=== PATIENT | male | born 1965 | race Two or more races ===

== ENCOUNTER 2016-10-18 19:53 | Emergency (ER) | payer BC ==
[~2016-10-18] VITALS: Ht 175.3 cm; Wt 106.1 kg
[~2016-10-18 19:53] MED LIST: BUPR1FIL5 SL; CLON0.5T PO; HEART MED
[2016-10-18] MEDS ORDERED: ASPIRIN 325 MG TABLET ONE (20:05)
--- NOTE | 2016-10-18 20:07 | NUR ---
DR. KAUR IS AT THE BEDSIDE EVALUATING THE PT.
[2016-10-18 20:10] LABS: BASOPHILS # (AUTO) 0.1 /CMM (0.0-0.2); BASOPHILS % (AUTO) 0.7 % (0.0-2.0); EOSINOPHILS # (AUTO) 0.2 /CMM (0.0-0.7); EOSINOPHILS % (AUTO) 1.3 % (0.0-6.0); HEMATOCRIT 42 % (39-51); HEMOGLOBIN 14.5 g/dL (13.5-17.5); LYMPHOCYTES # (AUTO) 2.9 /CMM (0.8-4.8); LYMPHOCYTES % (AUTO) 21.7 % (20.0-44.0); MEAN CORPUSCULAR HEMOGLOBIN 29 PG (26.0-33.0); MEAN CORPUSCULAR HGB CONC 34 g/dl (31.0-36.0); MEAN CORPUSCULAR VOLUME 84 fL (80-96); MONOCYTES # (AUTO) 0.5 /CMM (0.1-1.30); NEUTROPHILS # (AUTO) 9.5 /CMM (1.8-8.9); NEUTROPHILS % (AUTO) 72.3 % (43.0-81.0); PLATELET COUNT (AUTO) 237 /CMM (150-450); RED BLOOD CELL COUNT(AUTO) 5.05 MIL/uL (4.5-6.0); WHITE BLOOD COUNT (AUTO) 13.2 K/uL (4.3-11.0)
[2016-10-18 20:20] LABS: CALCIUM, SERUM 8.6 mg/dL (8.5-10.1); CARBON DIOXIDE 29 mmol/L (21-32); CHLORIDE 104 mmol/L (98-107); CREATININE 1.3 mg/dL (0.6-1.3); GFR 58 mL/min (>60); GLUCOSE 139 mg/dL (74-106); POTASSIUM 3.5 mmol/L (3.5-5.1); SODIUM SERUM 139 mmol/L (136-145); UREA NITROGEN, BLOOD 13 mg/dL (7-18)
[2016-10-18 20:23] LABS: INR 0.96 (0.87-1.13)
[2016-10-18 20:28] LABS: TROPONIN I < 0.017 ng/mL (0.00-0.056)
[2016-10-18] MEDS ORDERED: ASPIRIN 325 MG TABLET PO ONE (20:30)
--- NOTE | 2016-10-18 21:50 | NUR ---
IV removed. Catheter intact and site benign. Pressure and 4x4 applied to site. No bleeding noted.
--- NOTE | 2016-10-18 22:00 | NUR ---
Patient discharged to home in stable condition. Written and verbal after care instructions given. Patient verbalizes understanding of instruction. PT AMBULATED OUT WITH A STEADY GAIT. VSS.
[2016-10-18 22:11] VITALS: BP 142/67
== END 2016-10-18 22:00 | disposition home or self-care (01) ==
LOC: ER 19:55
DX: R07.89 Other chest pain (principal)
CPT/HCPCS: 36415; 71010; 80048; 84484; 85025; 85730; 93005; 99285; A4606; Z7610

== ENCOUNTER 2017-05-11 03:39 | Emergency (ER) | payer SELFPAY ==
[~2017-05-11] VITALS: Ht 175.3 cm; Wt 99.8 kg
--- NOTE | 2017-05-11 03:43 | NUR ---
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 Aaox3, nad noted, breathing even and unlabored. Nondiaphoretic. Placed on cardiac and vs monitor.
--- NOTE | 2017-05-11 03:50 | NUR ---
Dr Villarreal at bedside to eval.
[2017-05-11] MEDS ORDERED: ONDANSETRON 4 MG TAB.RAPDIS ONE (03:57)
[2017-05-11] MEDS ORDERED: LOPERAMIDE HCL (2 MG CAP) 2 MG CAPSULE PO ONE ×2 (03:57→04:00)
[2017-05-11] MEDS ORDERED: ONDANSETRON 4 MG TAB.RAPDIS SL ONE (04:00)
[2017-05-11] MEDS ORDERED: CLONIDINE HCL 0.2MG/24H PTWK 1 EA PATCH TD ONE ×2 (04:00→04:07)
--- NOTE | 2017-05-11 04:17 | NUR ---
medicated patient as ordered by Dr Villarreal.
--- NOTE | 2017-05-11 04:39 | NUR ---
Patient discharged to home in stable condition. Written and verbal after care instructions given. Patient verbalizes understanding of instruction. Patient is ambulatory with steady gait, no further complaints.
[2017-05-11 04:40] VITALS: BP 130/82
== END 2017-05-11 04:40 | disposition home or self-care (01) ==
LOC: ER 03:42
DX: F11.23 Opioid dependence with withdrawal (principal); J34.89 Other specified disorders of nose and nasal sinuses; Z85.46 Personal history of malignant neoplasm of prostate
CPT/HCPCS: 71010; 93005; 99284; A4606; Q0162; Z7610

== ENCOUNTER 2017-06-05 09:09 | Emergency (ER) | payer MEDICAID ==
[~2017-06-05] VITALS: Ht 175.3 cm; Wt 104.3 kg
--- NOTE | 2017-06-05 09:10 | NUR ---
PT PRESENTED TO THE ER WITH A C/O CHEST PAIN MIDSTERNAL TO EPIGASTRIC. PT TOOK HIS LISINOPRIL AND SOME ZANAX LEGAL ARCHIVIST WITH NO RELIEF. PT APPEARS ANXIOUS. PT IS ON THE MONITOR AND CONTINUOUS PULSE OX. PT IS ST @133 ON THE MONITOR. EKG IN PROGRESS. IV INSERTION IN PROGRESS.
[2017-06-05] MEDS ORDERED: LISI-603 PO (09:22)
[2017-06-05] MEDS ORDERED: IV NS 0.9% 1,000 ML BAG IV ONE (09:30)
[2017-06-05] MEDS ORDERED: LORAZEPAM INJ 2 MG/ML VIAL IVP ONE (09:30)
[2017-06-05 09:32] LABS: BASOPHILS % (AUTO) 0.4 % (0.0-2.0); EOSINOPHILS # (AUTO) 0.2 /CMM (0.0-0.7); EOSINOPHILS % (AUTO) 1.8 % (0.0-6.0); HEMATOCRIT 46 % (39-51); HEMOGLOBIN 15.5 g/dL (13.5-17.5); LYMPHOCYTES # (AUTO) 2.8 /CMM (0.8-4.8); LYMPHOCYTES % (AUTO) 26.1 % (20.0-44.0); MEAN CORPUSCULAR HEMOGLOBIN 28 PG (26.0-33.0); MEAN CORPUSCULAR HGB CONC 34 g/dl (31.0-36.0); MEAN CORPUSCULAR VOLUME 83 fL (80-96); MONOCYTES # (AUTO) 0.6 /CMM (0.1-1.30); MONOCYTES % (AUTO) 5.8 % (2.0-12.0); NEUTROPHILS # (AUTO) 7.1 /CMM (1.8-8.9); NEUTROPHILS % (AUTO) 65.9 % (43.0-81.0); PLATELET COUNT (AUTO) 277 /CMM (150-450); RDW COEFFICIENT OF VARIATION 14.2 (11.5-15.0); RED BLOOD CELL COUNT(AUTO) 5.55 MIL/uL (4.5-6.0); WHITE BLOOD COUNT (AUTO) 10.7 K/uL (4.3-11.0)
[2017-06-05] MEDS ORDERED: LORAZEPAM INJ 2 MG/ML VIAL ONE (09:36)
[2017-06-05 09:50] LABS: ALANINE AMINOTRANSFERASE 39 U/L (12-78); ALKALINE PHOSPHATASE 146 U/L (46-116); ASPARTATE AMINOTRANSFERASE 35 U/L (15-37); BILIRUBIN,TOTAL 0.4 mg/dL (0.2-1.0); CALCIUM, SERUM 9.5 mg/dL (8.5-10.1); CARBON DIOXIDE 27 mmol/L (21-32); CHLORIDE 103 mmol/L (98-107); CREATININE 1.2 mg/dL (0.6-1.3); GLUCOSE 133 mg/dL (74-106); POTASSIUM 3.4 mmol/L (3.5-5.1); SODIUM SERUM 137 mmol/L (136-145); UREA NITROGEN, BLOOD 13 mg/dL (7-18)
[2017-06-05 09:52] LABS: INR 0.9 (0.87-1.13); PROTHROMBIN TIME 9.4 SECS (9.5-12.7); TROPONIN I < 0.017 ng/mL (0.00-0.056)
--- NOTE | 2017-06-05 10:10 | NUR ---
PT AMBULATED TO THE BATHROOM WITH A STEADY GAIT. VSS.
--- NOTE | 2017-06-05 10:12 | NUR ---
PT AMBULATED BACK TO BED #3.
--- NOTE | 2017-06-05 10:22 | NUR ---
IV removed. Catheter intact and site benign. Pressure and 4x4 applied to site. No bleeding noted.Patient discharged to home in stable condition. Written and verbal after care instructions given. Patient verbalizes understanding of instruction AND RX. PT AMBULATED OUT WITH A STEADY GAIT. FAMILY AT THE BEDSIDE WILL TAKE PT HOME.
[2017-06-05 10:25] VITALS: BP 133/80
== END 2017-06-05 10:25 | disposition home or self-care (01) ==
LOC: ER 09:11
DX: R07.9 Chest pain, unspecified (principal); F11.10 Opioid abuse, uncomplicated; Z85.46 Personal history of malignant neoplasm of prostate
CPT/HCPCS: 36415; 71010-TC; 80048-TC; 80076-TC; 84484-TC; 85025-TC; 85730-TC; A4606; J2060; J7030; Z7610

== ENCOUNTER 2017-11-01 15:11 | Emergency (ER) | payer MEDICAID ==
[~2017-11-01] VITALS: Ht 177.8 cm; Wt 104.3 kg
[~2017-11-01 15:11] MED LIST changes: -HEART MED; +LISI-603 PO
--- NOTE | 2017-11-01 15:14 | NUR ---
PATIENT TO ED DT LEFT SIDE CHEST PAIN "CRAMPING LIKE" SINCE THIS AM- PATIENT IS AWAKE AND ALERT. APPEARS IN NO DISTRESS/ VSS
[2017-11-01] MEDS ORDERED: IV NS 0.9% 1,000 ML BAG IV ONE (15:30)
[2017-11-01 15:36] LABS: BASOPHILS # (AUTO) 0.2 /CMM (0.0-0.2); BASOPHILS % (AUTO) 1.3 % (0.0-2.0); EOSINOPHILS % (AUTO) 0.9 % (0.0-6.0); HEMATOCRIT 44 % (39-51); HEMOGLOBIN 15.1 g/dL (13.5-17.5); LYMPHOCYTES # (AUTO) 2.6 /CMM (0.8-4.8); LYMPHOCYTES % (AUTO) 20.4 % (20.0-44.0); MEAN CORPUSCULAR HGB CONC 34 g/dl (31.0-36.0); MEAN CORPUSCULAR VOLUME 83 fL (80-96); MONOCYTES # (AUTO) 0.7 /CMM (0.1-1.30); MONOCYTES % (AUTO) 5.2 % (2.0-12.0); NEUTROPHILS # (AUTO) 9.3 /CMM (1.8-8.9); NEUTROPHILS % (AUTO) 72.2 % (43.0-81.0); PLATELET COUNT (AUTO) 268 /CMM (150-450); RDW COEFFICIENT OF VARIATION 13.3 (11.5-15.0); WHITE BLOOD COUNT (AUTO) 12.9 K/uL (4.3-11.0)
[2017-11-01 15:49] LABS: CALCIUM, SERUM 9.7 mg/dL (8.5-10.1); CARBON DIOXIDE 25 mmol/L (21-32); CHLORIDE 102 mmol/L (98-107); CREATININE 1.1 mg/dL (0.6-1.3); GLUCOSE 107 mg/dL (74-106); POTASSIUM 3.9 mmol/L (3.5-5.1); SODIUM SERUM 139 mmol/L (136-145); UREA NITROGEN, BLOOD 14 mg/dL (7-18)
[2017-11-01 15:55] LABS: TROPONIN I < 0.017 ng/mL (0.00-0.056)
[2017-11-01 15:59] LABS: INR 0.94 (0.87-1.13)
[2017-11-01 16:02] LABS: ALANINE AMINOTRANSFERASE 44 U/L (12-78); ALBUMIN 4.2 g/dL (3.4-5.0); ALKALINE PHOSPHATASE 148 U/L (46-116); ASPARTATE AMINOTRANSFERASE 21 U/L (15-37); B-TYPE NATRIURETIC PEPTIDE 137 PG/ML (0-125); BILIRUBIN,DIRECT 0.1 mg/dL (0.0-0.2); BILIRUBIN,TOTAL 0.5 mg/dL (0.2-1.0); TOTAL PROTEIN, SERUM 8.2 g/dL (6.4-8.2)
[2017-11-01 16:16] LABS: ACETAMINOPHEN 0 ug/ml (10-30); ALCOHOL, BLOOD < 3 mg/dL (0-0); SALICYLATE 0.8 mg/dL (2.8-20.0)
[2017-11-01 16:40] LABS: APPEARANCE,URINE CLEAR (CLEAR); BILIRUBIN,URINE NEGATIVE (NEGATIVE); BLOOD, URINE TRACE-INTA Ery/uL (NEGATIVE); COLOR,URINE YELLOW (YELLOW); KETONES,URINE NEGATIVE (NEGATIVE); LEUKOCYTE ESTERASE ,URINE NEGATIVE (NEGATIVE); NITRITE, URINE NEGATIVE (NEGATIVE); PROTEIN,URINE NEGATIVE (NEGATIVE); UGLUCOSE NEGATIVE (NEGATIVE); UROBILINOGEN,URINE 0.2 EU/dL (0.2)
--- NOTE | 2017-11-01 16:55 | NUR ---
Patient discharged to home in stable condition. Written and verbal after care instructions given. Patient verbalizes understanding of instruction.
--- NOTE | 2017-11-01 16:55 | NUR ---
IV removed. Catheter intact and site benign. Pressure and 4x4 applied to site. No bleeding noted.
[2017-11-01 16:56] VITALS: BP 117/75
[2017-11-01 16:58] LABS: BACTERIA,URINE None seen /HPF (None Seen); SQUAMOUS EPITHELIAL CELL,UR 0-2 /HPF (None Seen); WBC,URINE 0-2 /HPF (0-3)
== END 2017-11-01 17:00 | disposition home or self-care (01) ==
LOC: ER 15:14
DX: R07.89 Other chest pain (principal); F41.9 Anxiety disorder, unspecified; E86.0 Dehydration; Z85.46 Personal history of malignant neoplasm of prostate; Z98.890 Other specified postprocedural states
CPT/HCPCS: 36415; 71045-TC; 80048-TC; 80076-TC; 80305; 81000-TC; 83880; 84484-TC; 85025-TC; 85730-TC; A4606; G0480; J7030; Z7610

== ENCOUNTER 2017-11-30 11:50 | Emergency (ER) | payer MEDICAID, OTHER ==
[~2017-11-30] VITALS: Ht 175.3 cm; Wt 104.3 kg
--- NOTE | 2017-11-30 11:55 | NUR ---
AAOX3, CAME TO ER C/O GENERALIZED BODYACHES, HX OF PROSTATE CA. RR IS EVEN AND UNLABORED WITH NAD NOTED. SKIN IS WARM AND DRY. AWAITING MD FOR EVAL.
[2017-11-30 12:10] VITALS: BP 131/78
== END 2017-11-30 12:11 | disposition home or self-care (01) ==
LOC: ER 11:51
DX: G89.29 Other chronic pain (principal); N17.9 Acute kidney failure, unspecified; I10 Essential (primary) hypertension; Z85.46 Personal history of malignant neoplasm of prostate; Z98.890 Other specified postprocedural states
CPT/HCPCS: A4606; Z7502; Z7610

== ENCOUNTER 2018-01-31 14:33 | Inpatient (IN) | payer OTHER ==
[~2018-01-31] VITALS: Ht 175.3 cm; Wt 104.3 kg
--- NOTE | 2018-01-31 14:38 | NUR ---
AAOX3, CAME TO ER C/O LEFT SIDED CHEST PAIN NON RADIATING X 2 WEEKS, WORSE WHEN LAYING ON LEFT. RR IS EVEN AND UNLABORED WITH NAD NOTED. SKIN IS WARM AND DRY. PLACED ON THE MONITOR. AWAITING MD FOR EVAL. EKG IN PROGRESS AT BS.
[2018-01-31 15:25] LABS: BASOPHILS # (AUTO) 0.2 /CMM (0.0-0.2); BASOPHILS % (AUTO) 1.7 % (0.0-2.0); EOSINOPHILS % (AUTO) 0.5 % (0.0-6.0); HEMATOCRIT 45 % (39-51); HEMOGLOBIN 15.8 g/dL (13.5-17.5); LYMPHOCYTES # (AUTO) 2.3 /CMM (0.8-4.8); LYMPHOCYTES % (AUTO) 18.1 % (20.0-44.0); MEAN CORPUSCULAR HEMOGLOBIN 30 PG (26.0-33.0); MEAN CORPUSCULAR HGB CONC 36 g/dl (31.0-36.0); MEAN CORPUSCULAR VOLUME 83 fL (80-96); MONOCYTES # (AUTO) 0.6 /CMM (0.1-1.30); MONOCYTES % (AUTO) 4.9 % (2.0-12.0); NEUTROPHILS # (AUTO) 9.7 /CMM (1.8-8.9); NEUTROPHILS % (AUTO) 74.8 % (43.0-81.0); PLATELET COUNT (AUTO) 225 /CMM (150-450); RDW COEFFICIENT OF VARIATION 11.9 (11.5-15.0); RED BLOOD CELL COUNT(AUTO) 5.35 MIL/uL (4.5-6.0); WHITE BLOOD COUNT (AUTO) 12.9 K/uL (4.3-11.0)
[2018-01-31] MEDS ORDERED: LORAZEPAM INJ 2 MG/ML VIAL IV ONE (15:30)
--- NOTE | 2018-01-31 15:33 | NUR ---
SECOND ORDER OF EKG BUT HOLD OFF ON IT PER MD BERRY UNTIL CTA RESULTS ARE IN.
[2018-01-31 15:40] LABS: CALCIUM, SERUM 9.1 mg/dL (8.5-10.1); CARBON DIOXIDE 26 mmol/L (21-32); CHLORIDE 102 mmol/L (98-107); CREATININE 1.2 mg/dL (0.6-1.3); GLUCOSE 94 mg/dL (74-106); POTASSIUM 3.8 mmol/L (3.5-5.1); SODIUM SERUM 137 mmol/L (136-145); UREA NITROGEN, BLOOD 15 mg/dL (7-18)
[2018-01-31 15:47] LABS: INR 0.89 (0.85-1.15)
[2018-01-31 15:50] LABS: TROPONIN I < 0.017 ng/mL (0.00-0.056)
[2018-01-31] MEDS ORDERED: ASPIRIN 81 MG TAB.CHEW PO ONE (16:00)
[2018-01-31] MEDS ORDERED: IOHEXOL-350 100 ML VIAL IV ONE (16:04)
[2018-01-31] MEDS ORDERED: ASPIRIN 81 MG TAB.CHEW ONE (16:05)
[2018-01-31] MEDS ORDERED: LORAZEPAM INJ 2 MG/ML VIAL ONE (16:05)
--- NOTE | 2018-01-31 16:10 | NUR ---
DUPLICATE ORDER FOR EKG
[2018-01-31] MEDS ORDERED: HYDR25TA4 PO (16:20)
[2018-01-31] MEDS ORDERED: VALA500T36 PO (16:20)
[2018-01-31] MEDS ORDERED: OXYC30TA2 PO (16:20)
[2018-01-31] MEDS ORDERED: LORA-259 PO (16:20)
--- NOTE | 2018-01-31 16:24 | NUR ---
CALLED [facility] FOR PANEL CALL AND DR BALLESTEROS WAS PAGED. CALLED NURSING DYE TANK TENDER AND REQUESTED A TELE BED FOR THIS PT.
[2018-01-31] MEDS ORDERED: CYCLOBENZAPRINE 10 MG TABLET PO ONE (16:30)
[2018-01-31] MEDS ORDERED: KETOROLAC TROMETHAMINE INJ 60 MG/2 ML VIAL IM ONE ×2 (16:30→16:44)
[2018-01-31] MEDS ORDERED: CYCLOBENZAPRINE 10 MG TABLET ONE (16:45)
[2018-01-31 16:50] LABS: CREATINE KINASE MB 0.9 ng/mL (0-3.6)
--- NOTE | 2018-01-31 17:04 | NUR ---
PT IS ASSIGNED TO [facility] RM#: [id number], DX: CHEST PAIN, AND ACCEPTING IS DR PARADA
[2018-01-31 17:15] LABS: CHOLESTEROL 195 mg/dL (<200); HDL CHOLESTEROL 46 mg/dL (40-60); LDL 132 mg/dL (0-99); TRIGLYCERIDES 115 mg/dL (30-150)
[2018-01-31] MEDS ORDERED: HYDROCODONE/APAP 5/325MG 1 EACH TABLET PO PRN (17:30)
[2018-01-31] MEDS ORDERED: MAGNESIUM HYDROXIDE 30 ML UDC PO PRN (17:30)
[2018-01-31] MEDS ORDERED: ACETAMINOPHEN 325 MG TABLET PO PRN (17:30)
[2018-01-31] MEDS ORDERED: MAG HYDROX/AL HYDROX/SIMETH 30 ML UDC PO PRN (17:30)
[2018-01-31] MEDS ORDERED: ZOLPIDEM TARTRATE 5 MG TABLET PO PRN (17:30)
[2018-01-31] MEDS ORDERED: ONDANSETRON HCL/PF 4 MG/2 ML VIAL IVP PRN (17:30)
[2018-01-31] MEDS ORDERED: Z GUARD REMEDY 2 OZ OINT TP PRN (17:30)
--- NOTE | 2018-01-31 17:49 | NUR ---
REPORT GIVEN TO KEVIN BAPTISTE
--- NOTE | 2018-01-31 17:51 | NUR ---
RECEIVED REPORT FROM ER. AWAITING FOR THE PATIENT TO ARRIVE.
--- NOTE | 2018-01-31 18:14 | NUR ---
pt transferred to floor via acls protocol
[2018-01-31 18:20] VITALS: BP 115/73
--- NOTE | 2018-01-31 18:20 | NUR ---
FLOORING SALESPERSON ADMITTING NOTE PATIENT ARRIVED TO THE UNIT VIA GURNEY. SELF-AMBULATED TO THE BED. A/O X4, COOPERATIVE, AWAKE AND RESPONSIVE. CURRENTLY IS IN BED. BED IS LOCKED IN LOWEST POSITION, SIDE RAILS UP X2. PATIENT IS AMBULATORY, PRESENTS WITH STEADY GAIT, AND IS ORIENTED TO OWN ABILITIES. UPPER BODY ASSESSED. SKIN IS CLEAN AND INTACT. PATIENT REFUSED TO TAKE OF THE PANTS AND THE SOCKS, STATED HIS SKIN IS INTACT WITH NO BRUISES, SKIN CONDITIONS PRESENT. RN UNABLE TO ASSES THE LOWER BODY. EXTERNAL BRICK DROPPER APPLIED. TELE READING SR WITH PVC's HR 64 BPM. LAC 18G IV CATHETER IS INTACT AND PATENT. SPO2 97% ON RA. CHEST RISING EQUALLY/BILATERALLY. DENIES CHEST PAIN AT THIS TIME. REPORTS LEFT SIDED DISCOMFORT. DR PARADA IS AWARE OF PATIENT'S ARRIVAL TO THE UNIT. SEEN BY DR PARADA IN THE ER. ALL NEEDS ARE MET. WILL ENDORSE TO THE LINING MARKER NURSE FOR THE ROBERTO.
[2018-01-31 20:00] VITALS: BP 114/68
[2018-02-01] VITALS: BP 105/66
[2018-02-01 03:49] LABS: BASOPHILS # (AUTO) 0.1 /CMM (0.0-0.2); BASOPHILS % (AUTO) 0.8 % (0.0-2.0); EOSINOPHILS % (AUTO) 1.2 % (0.0-6.0); HEMATOCRIT 43 % (39-51); HEMOGLOBIN 14.4 g/dL (13.5-17.5); LYMPHOCYTES # (AUTO) 2.7 /CMM (0.8-4.8); LYMPHOCYTES % (AUTO) 25.1 % (20.0-44.0); MEAN CORPUSCULAR HEMOGLOBIN 29 PG (26.0-33.0); MEAN CORPUSCULAR HGB CONC 34 g/dl (31.0-36.0); MEAN CORPUSCULAR VOLUME 86 fL (80-96); MONOCYTES # (AUTO) 0.6 /CMM (0.1-1.30); NEUTROPHILS # (AUTO) 7.1 /CMM (1.8-8.9); NEUTROPHILS % (AUTO) 66.9 % (43.0-81.0); PLATELET COUNT (AUTO) 206 /CMM (150-450); RDW COEFFICIENT OF VARIATION 12.8 (11.5-15.0); RED BLOOD CELL COUNT(AUTO) 4.99 MIL/uL (4.5-6.0); WHITE BLOOD COUNT (AUTO) 10.6 K/uL (4.3-11.0)
[2018-02-01 04:00] VITALS: BP 106/46
[2018-02-01 04:03] LABS: CALCIUM, SERUM 8.9 mg/dL (8.5-10.1); CREATININE 1.1 mg/dL (0.6-1.3); MAGNESIUM 2.2 mg/dL (1.8-2.4); PHOSPHORUS 4.1 mg/dL (2.5-4.9); POTASSIUM 3.7 mmol/L (3.5-5.1)
--- NOTE | 2018-02-01 06:23 | NUR ---
THERAPIST RRT NOTES AWAKE & RESPONSIVE. NOT IN ANY DISTRESS. NO SOB NOTED. DENIES ANY PAIN OR DISCOMFORT AT THIS TIME. ON TELE SB @ 58 WITH PVCS WITH IV-HL PATENT & INTACT. MONITORED ACCORDINGLY. CALL LIGHT WITHIN REACH. BED IN LOWEST POSITION. SR UP X 2 FOR SAFETY. WILL ENDORSE TO NEXT SHIFT.
[2018-02-01 08:00] VITALS: BP 132/80
--- NOTE | 2018-02-01 08:00 | NUR ---
GEOGRAPHIC AREA INTELLIGENCE OFFICER NOTES PATIENT SEEN AND EVALUATED BY DR. MCCALLUM ORDERS FOR PATIENT TO BE NPO AND STRESS TEST FOR TODAY. PATIENT WAS KEPT NPO FOR BREAKFAST STATES HE ONLY HAD WATER. ORDERS NOTED AND CARRIED OUT.
[2018-02-01] MEDS: VALACYCLOVIR HCL 500 MG TABLET PO SCH ×2 (09:00→17:00)
[2018-02-01] MEDS: LISINOPRIL (20MG) 20 MG TABLET PO SCH (09:00)
[2018-02-01] MEDS: HYDROCHLOROTHIAZIDE 25 MG TABLET PO SCH (09:00)
[2018-02-01] MEDS: LORAZEPAM 1 MG TABLET PO SCH (09:27)
--- NOTE | 2018-02-01 09:31 | NUR ---
MS RN NOTES PATIENT HESITANT ABOUT STRESS TEST. PATIENT SPOKE TO DAVE MIXER PIGMENT VERBALIZED CONSENT. AGREED TO TAKE ATIVAN BEFORE PROCEDURE. DAVE MIXER PIGMENT AGREED. NOTED AND CARRIED OUT.
[2018-02-01] MEDS ORDERED: REGADENOSON 0.4 MG/5 ML DISP.SYRIN IVP ONE (11:27)
[2018-02-01] MEDS ORDERED: oxyCODONE IR immediate release 5 MG PO PRN (15:30)
[2018-02-01 16:00] VITALS: BP 96/60
[2018-02-01] MEDS ORDERED: oxyCODONE IR immediate release 5 MG PO SCH (17:00)
[2018-02-01] MEDS ORDERED: ASPIRIN EC 81 MG TABLET.DR PO ONE (17:30)
--- NOTE | 2018-02-01 18:00 | NUR ---
MS RN NOTES CALL RECEIVED FROM DR. PARADA STATING PATIENT STRESS TEST WAS NEGATIVE AND TO INFORM GI CONSULT TO EVALUATE PATIENT. DR. COUGHLIN INFORMED WILL EVALUATE PATIENT IN AM TO KEEP PATIENT NPO AFTER MIDNIGHT. ORDERS NOTED AND CARRIED OUT.
--- NOTE | 2018-02-01 19:05 | NUR ---
MS RN NOTES PATIENT IN BED RESTING NO SOB OR ACUTE DISTRESS NOTED. ALL DUE MEDICATIONS ADMINISTERED. ALL NEEDS MET WILL ENDORSE TO PM SHIFT ROBERTO.
--- NOTE | 2018-02-01 19:45 | NUR ---
ms/rn opening notes PATIENT IN BED, ALERT, ORIENTED, ABLE TO VERBALIZE NEEDS, CALM AND COOPERTAIVE TO CARE, SKINWARM TO TOUCH, NO PAIN REPORTED AND OBSERVED AT THIS TIME, DISCUSSED PLAN OF CARE. , WITH BRP, CARDIAC DIET, RECEIVED ENDORSEMENT FROM AM RN FOR ROBERTO.BRENDA PEREZ,
[2018-02-01 20:00] VITALS: BP 120/70
--- NOTE | 2018-02-02 06:28 | NUR ---
321-2 MS/RN NOTES PATIENT ABLE TO SLEEP DURING THE NIGHT, RAYMOND AND COOPERTAIVE TO CARE, MOTIVATED FOR SELF CARE, CALL LIGHTS WITHIN REACH, BED IN LOCK POSITION, WILL ENDORSE TO AM RN FOR ROBERTO.
[2018-02-02 07:26] LABS: CALCIUM, SERUM 8.9 mg/dL (8.5-10.1); CREATININE 1.3 mg/dL (0.6-1.3); POTASSIUM 3.9 mmol/L (3.5-5.1)
[2018-02-02 07:30] LABS: BASOPHILS % (AUTO) 0.3 % (0.0-2.0); EOSINOPHILS % (AUTO) 2.2 % (0.0-6.0); HEMATOCRIT 45 % (39-51); HEMOGLOBIN 14.8 g/dL (13.5-17.5); LYMPHOCYTES # (AUTO) 2.6 /CMM (0.8-4.8); LYMPHOCYTES % (AUTO) 25.8 % (20.0-44.0); MEAN CORPUSCULAR HEMOGLOBIN 29 PG (26.0-33.0); MEAN CORPUSCULAR HGB CONC 33 g/dl (31.0-36.0); MEAN CORPUSCULAR VOLUME 87 fL (80-96); MONOCYTES # (AUTO) 0.6 /CMM (0.1-1.30); MONOCYTES % (AUTO) 6.5 % (2.0-12.0); NEUTROPHILS # (AUTO) 6.5 /CMM (1.8-8.9); NEUTROPHILS % (AUTO) 65.2 % (43.0-81.0); PLATELET COUNT (AUTO) 224 /CMM (150-450); RDW COEFFICIENT OF VARIATION 12.6 (11.5-15.0); RED BLOOD CELL COUNT(AUTO) 5.13 MIL/uL (4.5-6.0); WHITE BLOOD COUNT (AUTO) 9.9 K/uL (4.3-11.0)
--- NOTE | 2018-02-02 07:30 | NUR ---
MS/RN OPENING NOTE PATIENT ALERT AND ORIENTED X4. DENIES SOB. RESPIRATION REGULAR AND UNLABORED. DENIES PAIN. PATIENT IN NO APPARENT DISTRESS. LAC G 20 PATENT AND SALINE LOCKED. PATIENT IS NPO SINCE MIDNIGHT FOR GI CONSULT. PATIENT CONTINENT AND AMBULATORY. VERBAL CUES ARE GIVEN TO KEEP SAFETY AWARENESS HIGH. GOOD AND GENTLE SKIN CARE RENDERED. KEPT CLEAN, DRY AND COMFORTABLE. ALL NEEDS ATTENDED AND ANTICIPATED. WILL CONTINUE TO MONITOR.
[2018-02-02 08:00] VITALS: BP 118/80
[2018-02-02] MEDS: LISINOPRIL (20MG) 20 MG TABLET PO SCH (09:00)
[2018-02-02] MEDS: VALACYCLOVIR HCL 500 MG TABLET PO SCH ×2 (09:00→18:13)
[2018-02-02] MEDS: LORAZEPAM 1 MG TABLET PO SCH (09:00)
[2018-02-02] MEDS: HYDROCHLOROTHIAZIDE 25 MG TABLET PO SCH (09:00)
[2018-02-02] MEDS: PANTOPRAZOLE 40 MG TABLET.DR PO SCH (10:00)
[2018-02-02 16:00] VITALS: BP 115/74
--- NOTE | 2018-02-02 17:00 | NUR ---
MS/RN NOTE PATIENT IS BACK FRO EGD. PATIENT ALERT AND ORIENTED X4. DENIES SOB. DENIES PAIN. RESPIRATION REGULAR AND UNLABORED. PATIENT IN NO APPARENT DISTRESS.
--- NOTE | 2018-02-02 17:20 | NUR ---
MS/RN NOTE PATIENT TOLERATED CLEAR LIQUID DIET WELL.
--- NOTE | 2018-02-02 19:30 | NUR ---
MS RN OPENING NOTES: RECEIVED PT IN BED AND IS AWAKE AND LAYING DOWN IN BED. PT IS A/OX4. PT IS ANTICIPATING EGD RESULTS BUT THEY ARE STILL PENDING. PT HAS L AC #20G AND IS PATENT AND INTACT. CURRENTLY S/L. CALL LIGHT WITHIN PT'S REACH. BED KEPT IN LOW, LOCKED POSITION, AND SIDE RAILS X 2UP. WILL CONTINUE TO MONITOR PT.
--- NOTE | 2018-02-02 19:35 | NUR ---
MS/RN CLOSING NOTE PATIENT ALERT AND ORIENTED X4. DENIES SOB. DENIES PAIN. BREATHING EVEN AND UNLABORED. PATIENT IN NO APPARENT DISTRESS. YESSICA G 20 PATENT AND SALINE LOCKED. BED LOW AND LOCKED. SIDE RAILS UP X3. CALL LIGHT WITHIN REACH. WILL ENDORSE TO BUSINESS DATABASE ANALYST.
[2018-02-02 21:52] VITALS: BP 108/68
--- NOTE | 2018-02-03 07:30 | NUR ---
received pt. this am,vs stable,no complaints offered.
--- NOTE | 2018-02-03 07:41 | NUR ---
MS RN CLOSING NOTES: PT IS AWAKE AND SITTING UP READING A BOOK. PT IS A/OX4. PT HAS IV ON LAC #20G AND IS PATENT AND INTACT. CURRENTLY S/L. CALL LIGHT WITHIN PT'S REACH. BED KEPT IN LOW, LOCKED POSITION, AND SIDE RAILS X 2UP. ENDORSED TO AM NURSE FOR ROBERTO.
[2018-02-03 08:00] VITALS: BP 121/74
[2018-02-03] MEDS: PANTOPRAZOLE 40 MG TABLET.DR PO SCH (09:42)
[2018-02-03] MEDS: HYDROCHLOROTHIAZIDE 25 MG TABLET PO SCH (09:42)
[2018-02-03] MEDS: VALACYCLOVIR HCL 500 MG TABLET PO SCH (09:42)
[2018-02-03] MEDS: LORAZEPAM 1 MG TABLET PO SCH (09:42)
[2018-02-03 10:25] VITALS: BP 115/73
[2018-02-03] MEDS: LISINOPRIL (20MG) 20 MG TABLET PO SCH (10:25)
--- NOTE | 2018-02-03 11:30 | NUR ---
up and about in room,no distress noted.
[2018-02-03] MEDS ORDERED: PANT40TA2 PO (11:39)
--- NOTE | 2018-02-03 14:10 | NUR ---
benita sifuentes instrumentation technician in ,discharge order given,made ready for dc.hep lock out.review of orders and protonix order. belonging sheet signed.aware to follow up with private md and have further egd.amb. to lobby accompanied by family and admittance attendant.
== END 2018-02-03 15:00 | disposition home or self-care (01) | DRG 241 ==
LOC: ER 14:37 → TELE 17:28 → MED 02-01 11:29
PROVIDERS: ADMIT Family Medicine; ATTEND Family Medicine
PROC: 0DB58ZX Excision of Esophagus, Via Natural or Artificial Opening Endoscopic, Diagnostic (ICD-10-PCS; principal; 2018-02-02 16:41)
PROC: 0DB68ZX Excision of Stomach, Via Natural or Artificial Opening Endoscopic, Diagnostic (ICD-10-PCS; principal; 2018-02-02 16:41)
DX: K29.70 Gastritis, unspecified, without bleeding (principal); I31.9 Disease of pericardium, unspecified; I10 Essential (primary) hypertension; R07.81 Pleurodynia; D72.829 Elevated white blood cell count, unspecified; F41.9 Anxiety disorder, unspecified; K29.80 Duodenitis without bleeding; G89.29 Other chronic pain; M54.9 Dorsalgia, unspecified; M62.50 Muscle wasting and atrophy, not elsewhere classified, unspecified site; K21.0 Gastro-esophageal reflux disease with esophagitis; B00.9 Herpesviral infection, unspecified; Z85.46 Personal history of malignant neoplasm of prostate; K25.9 Gastric ulcer, unspecified as acute or chronic, without hemorrhage or perforation; K44.9 Diaphragmatic hernia without obstruction or gangrene
CPT/HCPCS: 36415; 71046; 76705-TC; 80048-TC; 80061-TC; 82550-TC; 82553-TC; 83735-TC; 84100-TC; 84443-TC; 84484-TC; 85025-TC; 85378-TC; 85730-TC; 87081-TC; 88305-TC; 88312-TC; 88342; 93307-TC; A4606; A9502; J1885; J2060; J2785; Q9967; Z7610

== ENCOUNTER 2018-10-20 19:58 | Emergency (ER) | payer OTHER ==
[~2018-10-20] VITALS: Ht 175.3 cm; Wt 105.7 kg
[~2018-10-20 19:58] MED LIST changes: -BUPR1FIL5 SL; -CLON0.5T PO; +HYDR25TA4 PO; +LORA-259 PO; +OXYC30TA2 PO; +PANT40TA2 PO; +VALA500T36 PO
--- NOTE | 2018-10-20 20:45 | NUR ---
BIB C/O RT LOWER QUAD ABD PAIN X 2 MOS. PT AAOX4, VSS. DENIES CP, SOB, DIZZINESS, N/V/D @ THIS TIME. PT SEEN & EVAL'D BY DR. WESTON. WILL CONT TO MONITOR.
[2018-10-20 20:57] LABS: BASOPHILS # (AUTO) 0.1 /CMM (0.0-0.2); BASOPHILS % (AUTO) 1.4 % (0.0-2.0); EOSINOPHILS % (AUTO) 2.4 % (0.0-6.0); HEMATOCRIT 43 % (39-51); HEMOGLOBIN 14.7 g/dL (13.5-17.5); LYMPHOCYTES # (AUTO) 2.4 /CMM (0.8-4.8); LYMPHOCYTES % (AUTO) 23.1 % (20.0-44.0); MEAN CORPUSCULAR HGB CONC 34 g/dl (31.0-36.0); MEAN CORPUSCULAR VOLUME 86 fL (80-96); MONOCYTES # (AUTO) 0.8 /CMM (0.1-1.30); MONOCYTES % (AUTO) 8.1 % (2.0-12.0); NEUTROPHILS # (AUTO) 6.6 /CMM (1.8-8.9); PLATELET COUNT (AUTO) 230 /CMM (150-450); RED BLOOD CELL COUNT(AUTO) 5.05 MIL/uL (4.5-6.0); WHITE BLOOD COUNT (AUTO) 10.2 K/uL (4.3-11.0)
[2018-10-20] MEDS ORDERED: KETOROLAC TROMETHAMINE INJ 30 MG/ML VIAL ONE (20:59)
[2018-10-20 21:04] LABS: CALCIUM, SERUM 8.6 mg/dL (8.5-10.1); CREATININE 1.1 mg/dL (0.6-1.3); POTASSIUM 4.2 mmol/L (3.5-5.1)
--- NOTE | 2018-10-20 21:09 | NUR ---
PT TO CT VIA [facility].
[2018-10-20 21:10] LABS: ALBUMIN 3.6 g/dL (3.4-5.0); BILIRUBIN,DIRECT 0.1 mg/dL (0.0-0.2); BILIRUBIN,TOTAL 0.3 mg/dL (0.2-1.0); TOTAL PROTEIN, SERUM 7.4 g/dL (6.4-8.2)
[2018-10-20] MEDS: KETOROLAC TROMETHAMINE INJ 30 MG/ML VIAL IV ONE (21:39)
--- NOTE | 2018-10-20 21:40 | NUR ---
MEDICATED FOR PAIN PER ERMD ORDER, PT SABRINA WELL.
--- NOTE | 2018-10-20 22:52 | NUR ---
Patient discharged to home in stable condition. Written and verbal after care instructions given. Patient verbalizes understanding of instruction. IV removed. Catheter intact and site benign. Pressure and 4x4 applied to site. No bleeding noted.
[2018-10-20 22:54] VITALS: BP 128/74
== END 2018-10-20 22:56 | disposition home or self-care (01) ==
LOC: ER 20:04
DX: G89.29 Other chronic pain (principal); R10.31 Right lower quadrant pain; I10 Essential (primary) hypertension; F41.9 Anxiety disorder, unspecified; Z90.79 Acquired absence of other genital organ(s); Z85.46 Personal history of malignant neoplasm of prostate; Z86.19 Personal history of other infectious and parasitic diseases; Z79.899 Other long term (current) drug therapy
CPT/HCPCS: 36415; 74176; 80048; 80076; 83690; 85025; 96374; 99284; J1885

== ENCOUNTER 2020-01-09 10:52 | Emergency (ER) | payer OTHER ==
[~2020-01-09] VITALS: Ht 177.8 cm; Wt 99.8 kg
[~2020-01-09 10:52] MED LIST changes: -VALA500T36 PO; +VALA500T40 PO
--- NOTE | 2020-01-09 11:10 | NUR ---
wheeled patient via gurney for ct scan abd pelvis.
--- NOTE | 2020-01-09 11:27 | NUR ---
patient came back from ct
[2020-01-09 11:36] LABS: BASOPHILS # (AUTO) 0.1 /CMM (0.0-0.2); EOSINOPHILS % (AUTO) 1.7 % (0.0-6.0); HEMATOCRIT 47 % (39-51); HEMOGLOBIN 15.7 g/dL (13.5-17.5); LYMPHOCYTES # (AUTO) 2.4 /CMM (0.8-4.8); LYMPHOCYTES % (AUTO) 22.9 % (20.0-44.0); MEAN CORPUSCULAR HGB CONC 33 g/dl (31.0-36.0); MEAN CORPUSCULAR VOLUME 85 fL (80-96); MONOCYTES # (AUTO) 0.6 /CMM (0.1-1.30); MONOCYTES % (AUTO) 5.7 % (2.0-12.0); NEUTROPHILS # (AUTO) 7.1 /CMM (1.8-8.9); NEUTROPHILS % (AUTO) 68.7 % (43.0-81.0); PLATELET COUNT (AUTO) 248 /CMM (150-450); RED BLOOD CELL COUNT(AUTO) 5.58 MIL/uL (4.5-6.0); WHITE BLOOD COUNT (AUTO) 10.3 K/uL (4.3-11.0)
[2020-01-09 11:44] LABS: CALCIUM, SERUM 9.2 mg/dL (8.5-10.1); CREATININE 1.2 mg/dL (0.6-1.3); POTASSIUM 4.3 mmol/L (3.5-5.1)
[2020-01-09 11:49] LABS: ALBUMIN 3.9 g/dL (3.4-5.0); BILIRUBIN,DIRECT 0.1 mg/dL (0.0-0.2); BILIRUBIN,TOTAL 0.6 mg/dL (0.2-1.0); TOTAL PROTEIN, SERUM 7.8 g/dL (6.4-8.2)
[2020-01-09 12:14] VITALS: BP 145/81
--- NOTE | 2020-01-09 12:15 | NUR ---
Patient discharged to home in stable condition. Written and verbal after care instructions given. Patient verbalizes understanding of instruction.
== END 2020-01-09 12:15 | disposition home or self-care (01) ==
LOC: ER 10:55
DX: R10.11 Right upper quadrant pain (principal); R10.31 Right lower quadrant pain; Z98.890 Other specified postprocedural states; Z79.899 Other long term (current) drug therapy
CPT/HCPCS: 36415; 80048-TC; 80076-TC; 83690-TC; 85025-TC

== ENCOUNTER 2020-09-27 13:52 | Emergency (ER) | payer BC, OTHER ==
[~2020-09-27] VITALS: Ht 175.3 cm; Wt 102.1 kg
[~2020-09-27 13:52] MED LIST changes: -LISI-603 PO; +LISI20TA30 PO
--- NOTE | 2020-09-27 13:52 | NUR ---
PT BIB SELF C/O SOB AND COUGH FOR 2 WEEKS. PT IS AAOX4, NOT IN RESPIRATORY DISTRESS, V/S STABLE, KEPT RESTED AND COMFORTABLE. WILL CONTINUE TO MONITOR.
--- NOTE | 2020-09-27 14:03 | NUR ---
AT BEDSIDE FOR EVAL.
--- NOTE | 2020-09-27 14:22 | NUR ---
STEPHANI VAUGHN AT BEDSIDE FOR BLOOD DRAW.
[2020-09-27 14:32] LABS: BASOPHILS # (AUTO) 0.1 /CMM (0.0-0.2); BASOPHILS % (AUTO) 0.9 % (0.0-2.0); EOSINOPHILS % (AUTO) 2.5 % (0.0-6.0); HEMATOCRIT 43 % (39-51); HEMOGLOBIN 14.4 g/dL (13.5-17.5); LYMPHOCYTES # (AUTO) 2.7 /CMM (0.8-4.8); LYMPHOCYTES % (AUTO) 22.7 % (20.0-44.0); MEAN CORPUSCULAR HGB CONC 34 g/dl (31.0-36.0); MEAN CORPUSCULAR VOLUME 87 fL (80-96); MONOCYTES # (AUTO) 0.8 /CMM (0.1-1.30); MONOCYTES % (AUTO) 7.1 % (2.0-12.0); NEUTROPHILS # (AUTO) 7.9 /CMM (1.8-8.9); NEUTROPHILS % (AUTO) 66.8 % (43.0-81.0); PLATELET COUNT (AUTO) 234 /CMM (150-450); RED BLOOD CELL COUNT(AUTO) 4.95 MIL/uL (4.5-6.0); WHITE BLOOD COUNT (AUTO) 11.8 K/uL (4.3-11.0)
[2020-09-27] MEDS: ALBUTEROL FS 2.5 MG/3 ML VIAL.NEB NEB ONE (14:41)
[2020-09-27] MEDS: IPRATROPIUM NEB FS 0.5 MG/2.5 ML AMPUL.NEB NEB ONE (14:41)
[2020-09-27] MEDS ORDERED: ALBUTEROL FS 2.5 MG/3 ML VIAL.NEB ONE (14:42)
[2020-09-27] MEDS ORDERED: IPRATROPIUM NEB FS 0.5 MG/2.5 ML AMPUL.NEB ONE (14:42)
--- NOTE | 2020-09-27 14:43 | NUR ---
RT AT BEDSIDE FOR BREATHING TX.
[2020-09-27 14:47] LABS: CALCIUM, SERUM 8.8 mg/dL (8.5-10.1); CARBON DIOXIDE 29 mmol/L (21-32); CHLORIDE 101 mmol/L (98-107); CREATININE 1.1 mg/dL (0.6-1.3); GLUCOSE 98 mg/dL (74-106); POTASSIUM 3.8 mmol/L (3.5-5.1); SODIUM SERUM 138 mmol/L (136-145); UREA NITROGEN, BLOOD 14 mg/dL (7-18)
[2020-09-27 14:59] LABS: B-TYPE NATRIURETIC PEPTIDE 41 PG/ML (0-125)
[2020-09-27] MEDS ORDERED: ALBU18HF2 INH (15:59)
[2020-09-27 16:07] VITALS: BP 120/68
--- NOTE | 2020-09-27 16:07 | NUR ---
Patient discharged to home in stable condition. Written and verbal after care instructions given. Patient verbalizes understanding of instruction.
== END 2020-09-27 16:08 | disposition home or self-care (01) ==
LOC: ER 13:54
DX: J45.909 Unspecified asthma, uncomplicated (principal); Z98.890 Other specified postprocedural states; Z79.899 Other long term (current) drug therapy; Z85.46 Personal history of malignant neoplasm of prostate
CPT/HCPCS: 36415; 71045-TC; 80048-TC; 83880; 84484-TC; 85025-TC

== ENCOUNTER 2021-01-10 14:21 | Emergency (ER) | payer BC ==
[~2021-01-10] VITALS: Ht 175.3 cm; Wt 102.1 kg
[~2021-01-10 14:21] MED LIST changes: +ALBU18HF2 INH
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
[2021-01-10 15:54] VITALS: BP 136/75
--- NOTE | 2021-01-10 15:54 | NUR ---
Patient discharged to home in stable condition. Written and verbal after care instructions given. Patient verbalizes understanding of instruction.
== END 2021-01-10 15:55 | disposition home or self-care (01) ==
LOC: ER 14:25
DX: R10.31 Right lower quadrant pain (principal); R10.11 Right upper quadrant pain; J45.909 Unspecified asthma, uncomplicated; Z98.890 Other specified postprocedural states; Z79.899 Other long term (current) drug therapy; V49.49XA Driver injured in collision with other motor vehicles in traffic accident, initial encounter; Y93.89 Activity, other specified; Y92.413 State road as the place of occurrence of the external cause; Y99.8 Other external cause status

== ENCOUNTER 2022-07-07 14:40 | Emergency (ER) | payer BC, MEDICAID ==
[~2022-07-07] VITALS: Ht 175.3 cm; Wt 104.3 kg
[2022-07-07 19:59] VITALS: BP 143/70
--- NOTE | 2022-07-07 20:47 | NUR ---
SUPERVISOR NEWSPAPER DELIVERIES AT PT'S BEDSIDE
[2022-07-07 21:14] LABS: BASOPHILS # (AUTO) 0.1 K/uL (0.0-0.2); BASOPHILS % (AUTO) 0.7 % (0.0-2.0); EOSINOPHILS % (AUTO) 1.6 % (0.0-6.0); HEMATOCRIT 45 % (39-51); HEMOGLOBIN 14.8 g/dL (13.5-17.5); LYMPHOCYTES # (AUTO) 2.9 K/uL (0.8-4.8); LYMPHOCYTES % (AUTO) 21.9 % (20.0-44.0); MEAN CORPUSCULAR HGB CONC 33 g/dl (31.0-36.0); MEAN CORPUSCULAR VOLUME 85 fL (80-96); MONOCYTES # (AUTO) 1.1 K/uL (0.1-1.30); MONOCYTES % (AUTO) 8.4 % (2.0-12.0); NEUTROPHILS # (AUTO) 8.8 K/uL (1.8-8.9); NEUTROPHILS % (AUTO) 67.4 % (43.0-81.0); PLATELET COUNT (AUTO) 249 K/uL (150-450); RED BLOOD CELL COUNT(AUTO) 5.33 MIL/uL (4.5-6.0)
[2022-07-07 21:21] LABS: CALCIUM, SERUM 9.2 mg/dL (8.5-10.1); CREATININE 1.2 mg/dL (0.6-1.3); POTASSIUM 3.9 mmol/L (3.5-5.1)
[2022-07-07 21:27] LABS: BILIRUBIN,DIRECT 0.1 mg/dL (0.0-0.2); BILIRUBIN,TOTAL 0.6 mg/dL (0.2-1.0); TOTAL PROTEIN, SERUM 7.8 g/dL (6.4-8.2)
[2022-07-07 21:42] LABS: ALBUMIN 4.1 g/dL (3.4-5.0)
--- NOTE | 2022-07-07 21:50 | NUR ---
COVID AND FLU SWAB COLLECTED
[2022-07-07] MEDS ORDERED: DOXYCYCLINE HYCLATE (100 MG) 100 MG TABLET ONE (22:24)
[2022-07-07] MEDS ORDERED: IBUPROFEN 600 MG TABLET ONE (22:24)
[2022-07-07] MEDS ORDERED: IBUP-1955 PO (22:30)
[2022-07-07] MEDS ORDERED: DOXYCYCLINE HYCLATE (100 MG) 100 MG TABLET PO ONE (22:30)
[2022-07-07] MEDS ORDERED: CYCL10TA9 PO (22:30)
[2022-07-07] MEDS ORDERED: IBUPROFEN 600 MG TABLET PO ONE (22:30)
[2022-07-07] MEDS ORDERED: DOXY-326 PO (22:30)
[2022-07-07 22:35] LABS: BAND % (MANUAL) 1 % (0.0-5.0); EOSINOPHILS % (MANUAL) 3 % (0-4); LYMPHOCYTES % (MANUAL) 22 % (16-48); MONOCYTES % (MANUAL) 5 % (0-11.0); NEUTROPHILS % (MANUAL) 69 (42-76)
--- NOTE | 2022-07-07 22:37 | NUR ---
Patient discharged to home in stable condition. Written and verbal after care instructions given. Patient verbalizes understanding of instruction.
== END 2022-07-07 22:38 | disposition home or self-care (01) ==
LOC: ER 14:53
DX: J18.9 Pneumonia, unspecified organism (principal); M79.10 Myalgia, unspecified site; Z20.822 Contact with and (suspected) exposure to COVID-19; K57.30 Diverticulosis of large intestine without perforation or abscess without bleeding; J45.909 Unspecified asthma, uncomplicated; Z85.46 Personal history of malignant neoplasm of prostate; Z90.79 Acquired absence of other genital organ(s)
CPT/HCPCS: 99284; 74176; 87426; 87804; 85025; 80048; 82550; 83690; 80076; 36415; 85007; C9803

== ENCOUNTER 2023-06-07 23:20 | Emergency (ER) | payer MEDICAID ==
[~2023-06-07] VITALS: Ht 175.3 cm; Wt 90.7 kg
[~2023-06-07 23:20] MED LIST changes: +CYCL10TA9 PO; +DOXY-326 PO; +IBUP-1955 PO
[2023-06-08 00:33] VITALS: TEMP 98.2
[2023-06-08] MEDS ORDERED: KETOROLAC TROMETHAMINE 15 MG/ML VIAL ONE (01:16)
[2023-06-08] MEDS ORDERED: IOHEXOL-300 100 ML VIAL IV ONE (01:19)
[2023-06-08] MEDS ORDERED: IV NS 0.9% 250 ML IV ONE (01:20)
[2023-06-08] MEDS ORDERED: CT SWABBABLE VALVE TRANS SET 1 EA INFUS.SET MC ONE (01:21)
[2023-06-08] MEDS ORDERED: KETOROLAC TROMETHAMINE INJ 30 MG/ML VIAL IV ONE (01:30)
[2023-06-08] MEDS ORDERED: IV NS 0.9% 1,000 ML BAG IV ONE (01:30)
[2023-06-08 01:47] LABS: BASOPHILS # (AUTO) 0.1 K/uL (0.0-0.2); BASOPHILS % (AUTO) 0.7 % (0.0-2.0); EOSINOPHILS # (AUTO) 0.1 K/uL (0.0-0.7); EOSINOPHILS % (AUTO) 0.9 % (0.0-6.0); HEMATOCRIT 44 % (39-51); HEMOGLOBIN 14.3 g/dL (13.5-17.5); LYMPHOCYTES # (AUTO) 2.5 K/uL (0.8-4.8); LYMPHOCYTES % (AUTO) 18.8 % (20.0-44.0); MEAN CORPUSCULAR HEMOGLOBIN 28 PG (26.0-33.0); MEAN CORPUSCULAR HGB CONC 33 g/dl (31.0-36.0); MEAN CORPUSCULAR VOLUME 87 fL (80-96); MONOCYTES # (AUTO) 0.8 K/uL (0.1-1.30); MONOCYTES % (AUTO) 6.3 % (2.0-12.0); NEUTROPHILS # (AUTO) 9.9 K/uL (1.8-8.9); NEUTROPHILS % (AUTO) 73.3 % (43.0-81.0); PLATELET COUNT (AUTO) 221 K/uL (150-450); RED BLOOD CELL COUNT(AUTO) 5.03 MIL/uL (4.5-6.0); RED CELL DISTRIBUTION WIDTH 14.2 % (11.5-15.0); WHITE BLOOD COUNT (AUTO) 13.5 K/uL (4.3-11.0)
[2023-06-08 01:56] LABS: CALCIUM, SERUM 8.9 mg/dL (8.5-10.1); CREATININE 1.2 mg/dL (0.6-1.3); POTASSIUM 3.4 mmol/L (3.5-5.1)
[2023-06-08 02:01] LABS: ALBUMIN 3.8 g/dL (3.4-5.0); BILIRUBIN,DIRECT 0.1 mg/dL (0.0-0.2); BILIRUBIN,TOTAL 0.4 mg/dL (0.2-1.0); TOTAL PROTEIN, SERUM 7.3 g/dL (6.4-8.2)
[2023-06-08 02:17] LABS: APPEARANCE,URINE CLEAR (CLEAR); BILIRUBIN,URINE 1+ (NEGATIVE); BLOOD, URINE 1+ Ery/uL (NEGATIVE); COLOR,URINE YELLOW (YELLOW); KETONES,URINE TRACE mg/dL (NEGATIVE); LEUKOCYTE ESTERASE ,URINE NEGATIVE (NEGATIVE); NITRITE, URINE NEGATIVE (NEGATIVE); PROTEIN,URINE NEGATIVE (NEGATIVE); UGLUCOSE NEGATIVE (NEGATIVE); UROBILINOGEN,URINE 0.2 EU/dL (0.2)
[2023-06-08 02:55] LABS: ADD URINE CULTURE NO; BACTERIA,URINE None seen /HPF (None Seen); SQUAMOUS EPITHELIAL CELL,UR None Seen /HPF (None Seen); WBC,URINE NONE SEEN /HPF (0-3)
[2023-06-08 02:56] LABS: CALCIUM OXALATE CRYSTALS,UR Moderate /HPF (None Seen)
[2023-06-08] MEDS ORDERED: DICY10CA37 PO (03:54)
[2023-06-08 04:08] VITALS: BP 131/80; O2SAT 100
== END 2023-06-08 04:09 | disposition home or self-care (01) ==
LOC: ER 23:21
DX: R10.30 Lower abdominal pain, unspecified (principal); I10 Essential (primary) hypertension; J45.909 Unspecified asthma, uncomplicated; Z79.899 Other long term (current) drug therapy
CPT/HCPCS: 99285; 74177; 96374; 96361; 85025; 80048; 83690; 80076; 81001; 36415; J7030; J7050; Q9967; J1885

== ENCOUNTER 2023-10-08 09:40 | Emergency (ER) | payer MEDICAID, OTHER ==
[~2023-10-08] VITALS: Ht 175.3 cm; Wt 90.7 kg
[~2023-10-08 09:40] MED LIST changes: +DICY10CA37 PO
[2023-10-08] MEDS ORDERED: KETOROLAC TROMETHAMINE INJ 30 MG/ML VIAL ONE (10:04)
[2023-10-08] MEDS ORDERED: ONDANSETRON HCL/PF 4 MG/2 ML VIAL ONE (10:04)
[2023-10-08] MEDS ORDERED: ACETAMINOPHEN ES 500 MG TABLET ONE (10:04)
[2023-10-08] MEDS: ONDANSETRON HCL/PF 4 MG/2 ML VIAL IVP ONE (10:18)
[2023-10-08] MEDS: IV NS 0.9% 1,000 ML BAG IV ONE (10:18)
[2023-10-08] MEDS: ACETAMINOPHEN ES 500 MG TABLET PO ONE (10:18)
[2023-10-08] MEDS: KETOROLAC TROMETHAMINE 15 MG/ML VIAL IV ONE (10:18)
[2023-10-08 10:21] LABS: BASOPHILS # (AUTO) 0.1 K/uL (0.0-0.2); BASOPHILS % (AUTO) 0.4 % (0.0-2.0); EOSINOPHILS % (AUTO) 0.1 % (0.0-6.0); HEMATOCRIT 46 % (39-51); HEMOGLOBIN 15.2 g/dL (13.5-17.5); LYMPHOCYTES % (AUTO) 6.9 % (20.0-44.0); MEAN CORPUSCULAR HEMOGLOBIN 28 PG (26.0-33.0); MEAN CORPUSCULAR HGB CONC 33 g/dl (31.0-36.0); MEAN CORPUSCULAR VOLUME 86 fL (80-96); MONOCYTES # (AUTO) 0.5 K/uL (0.1-1.30); MONOCYTES % (AUTO) 3.2 % (2.0-12.0); NEUTROPHILS # (AUTO) 12.7 K/uL (1.8-8.9); NEUTROPHILS % (AUTO) 89.4 % (43.0-81.0); PLATELET COUNT (AUTO) 259 K/uL (150-450); RED BLOOD CELL COUNT(AUTO) 5.39 MIL/uL (4.5-6.0); RED CELL DISTRIBUTION WIDTH 14.2 % (11.5-15.0); WHITE BLOOD COUNT (AUTO) 14.2 K/uL (4.3-11.0)
[2023-10-08] MEDS ORDERED: IV NS 0.9% 250 ML IV ONE (10:33)
[2023-10-08] MEDS ORDERED: IOHEXOL-300 100 ML VIAL IV ONE (10:34)
[2023-10-08 10:37] LABS: CALCIUM, SERUM 9.6 mg/dL (8.5-10.1); CREATININE 1.1 mg/dL (0.6-1.3); POTASSIUM 3.8 mmol/L (3.5-5.1)
[2023-10-08 10:43] LABS: LACTIC ACID 2.2 mmol/L (0.4-2.0)
[2023-10-08 10:47] LABS: ALBUMIN 4.1 g/dL (3.4-5.0); BILIRUBIN,DIRECT 0.1 mg/dL (0.0-0.2); BILIRUBIN,TOTAL 0.5 mg/dL (0.2-1.0); TOTAL PROTEIN, SERUM 8.1 g/dL (6.4-8.2)
[2023-10-08] MEDS ORDERED: ONDA4TAB11 PO (13:03)
[2023-10-08] MEDS ORDERED: METR500T PO (13:03)
[2023-10-08] MEDS ORDERED: CIPR-262 PO (13:03)
[2023-10-08 13:37] VITALS: BP 99/67; TEMP 98.5; O2SAT 99
== END 2023-10-08 13:37 | disposition home or self-care (01) ==
LOC: ER 09:57
DX: K52.9 Noninfective gastroenteritis and colitis, unspecified (principal); R10.30 Lower abdominal pain, unspecified; J45.909 Unspecified asthma, uncomplicated
CPT/HCPCS: 99285; 74177; 96374; 96361; 96375; 85025; 80048; 83605 ×2; 83690; 80076; 36415; J1885; J2405; J7030; J7050; Q9967

== ENCOUNTER 2024-03-30 09:18 | Emergency (ER) | payer OTHER ==
[~2024-03-30] VITALS: Ht 170.2 cm; Wt 90.7 kg
[~2024-03-30 09:18] MED LIST changes: +CIPR-262 PO; +METR500T PO; +ONDA4TAB11 PO
--- NOTE | 2024-03-30 10:00 | NUR ---
BIBS FOR C/O RIGHT LOWER ABDOMINAL AND RIGHT GROIN PAIN X3 DAYS. THE PATIENT RATES PAIN 5/10. DENIES NAUSEA AND VOMITING.
--- NOTE | 2024-03-30 10:19 | NUR ---
UA collected and sent
[2024-03-30 10:20] LABS: BASOPHILS # (AUTO) 0.1 K/uL (0.0-0.2); BASOPHILS % (AUTO) 0.9 % (0.0-2.0); EOSINOPHILS # (AUTO) 0.1 K/uL (0.0-0.7); EOSINOPHILS % (AUTO) 1.7 % (0.0-6.0); HEMATOCRIT 41 % (39-51); HEMOGLOBIN 13.7 g/dL (13.5-17.5); LYMPHOCYTES # (AUTO) 1.8 K/uL (0.8-4.8); LYMPHOCYTES % (AUTO) 21.2 % (20.0-44.0); MEAN CORPUSCULAR HEMOGLOBIN 29 PG (26.0-33.0); MEAN CORPUSCULAR HGB CONC 33 g/dl (31.0-36.0); MEAN CORPUSCULAR VOLUME 86 fL (80-96); MONOCYTES # (AUTO) 0.6 K/uL (0.1-1.30); MONOCYTES % (AUTO) 6.8 % (2.0-12.0); NEUTROPHILS # (AUTO) 5.7 K/uL (1.8-8.9); NEUTROPHILS % (AUTO) 69.4 % (43.0-81.0); PLATELET COUNT (AUTO) 215 K/uL (150-450); RED BLOOD CELL COUNT(AUTO) 4.83 MIL/uL (4.5-6.0); RED CELL DISTRIBUTION WIDTH 14.2 % (11.5-15.0); WHITE BLOOD COUNT (AUTO) 8.3 K/uL (4.3-11.0)
[2024-03-30 10:35] LABS: CALCIUM, SERUM 9.1 mg/dL (8.5-10.1); POTASSIUM 3.5 mmol/L (3.5-5.1)
[2024-03-30 10:35] LABS: ADD URINE CULTURE NO; APPEARANCE,URINE CLEAR (CLEAR); BACTERIA,URINE Rare /HPF (None Seen); BILIRUBIN,URINE NEGATIVE (NEGATIVE); BLOOD, URINE TRACE-INTA Ery/uL (NEGATIVE); COLOR,URINE YELLOW (YELLOW); KETONES,URINE NEGATIVE (NEGATIVE); LEUKOCYTE ESTERASE ,URINE NEGATIVE (NEGATIVE); NITRITE, URINE NEGATIVE (NEGATIVE); PH,URINE 5.5 (5.0-8.0); PROTEIN,URINE NEGATIVE (NEGATIVE); SQUAMOUS EPITHELIAL CELL,UR Rare /HPF (None Seen); UGLUCOSE NEGATIVE (NEGATIVE); UROBILINOGEN,URINE 0.2 EU/dL (0.2); WBC,URINE 0-2 /HPF (0-3)
[2024-03-30 10:41] LABS: ALBUMIN 3.6 g/dL (3.4-5.0); BILIRUBIN,DIRECT 0.1 mg/dL (0.0-0.2); BILIRUBIN,TOTAL 0.4 mg/dL (0.2-1.0); TOTAL PROTEIN, SERUM 7.1 g/dL (6.4-8.2)
[2024-03-30] MEDS ORDERED: METR500T PO (11:45)
[2024-03-30] MEDS ORDERED: CIPR-262 PO (11:45)
[2024-03-30] MEDS ORDERED: IBUP-1955 PO (11:45)
[2024-03-30] MEDS ORDERED: ONDA4TAB11 PO (11:45)
[2024-03-30] MEDS ORDERED: KETOROLAC TROMETHAMINE 15 MG/ML VIAL ONE (12:02)
[2024-03-30] MEDS: IV NS 0.9% 1,000 ML BAG IV ONE (12:07)
[2024-03-30] MEDS: KETOROLAC TROMETHAMINE 15 MG/ML VIAL IV ONE (12:08)
--- NOTE | 2024-03-30 12:33 | NUR ---
Patient discharged to home in stable condition. Written and verbal after care instructions given. Patient verbalizes understanding of instruction.
[2024-03-30 12:34] VITALS: BP 127/80; TEMP 98.8; O2SAT 98
== END 2024-03-30 12:34 | disposition home or self-care (01) ==
LOC: ER 09:21
DX: K52.9 Noninfective gastroenteritis and colitis, unspecified (principal); I88.0 Nonspecific mesenteric lymphadenitis; I10 Essential (primary) hypertension; J45.909 Unspecified asthma, uncomplicated; Z98.890 Other specified postprocedural states
CPT/HCPCS: 99285; 74176; 96374; 96361; 85025; 80048; 83690; 80076; 81001; 36415; J7030; J1885